=== PATIENT | female | born 1980 | race Caucasian/White ===

== ENCOUNTER 2018-07-14 12:21 | Emergency (ER) | payer SELFPAY ==
--- NOTE | 2018-07-14 13:35 | ER Document Report ---
ED Medical Screen (RME) - General Chief Complaint: Vomiting Stated Complaint: VOMITING/FOOT PAIN Time Seen by Provider: 07/14/18 13:14 Mode of Arrival: Ambulatory TRAVEL OUTSIDE OF THE [place] IN LAST 30 DAYS: No - HPI Notes: 07/14/18 13:31 37-year-old female presents to the ED with complaints of right foot pain after she hit her foot and started on a piece of furniture last night. States pain is 6 out of 10, throbbing achy, has been alternating between Tylenol and ibuprofen. Unable to bear full weight. Denies any numbness or tingling in bilateral lower extremities. Denies any other area of injury. Patient did vomit once today after eating a bagel and orange juice right after, has had no other episodes of vomiting, nausea. denies any abdominal pain. Patient denies history of hypertension, is never had blood pressure issues. Today her blood pressure was slightly elevated, will recheck with manual blood pressure. denies fevers, chills, chest pain,palpitations, shortness of breath, dyspnea, diarrhea, abdominal pain, hematuria,blurred vision, double vision, loss of vision, speech changes, LH, dizziness, syncope, headaches, wheezing, ST, URI, neck pain, weakn ess, bowel or bladder dysfunction, saddle anesthesia, numbness or tingling in bilateral upper or lower extremities equally, muscle paralysis, weakness in bilateral upper or lower extremities equally or rash. I have greeted and performed a rapid initial assessment of this patient. A comprehensive ED assessment and evaluation of the patient, analysis of test results and completion of medical decision making process will be conducted by an additional ED providers. - Related Data Allergies/Adverse Reactions: sulfamethoxazole [From Septra] Allergy (Verified 07/14/18 12:28) rash, nausea trimethoprim [From Janra] Allergy (Verified 07/14/18 12:28) rash, nausea Past Medical History - General Information source: Patient - Social History Chew tobacco use (# tins/day): No Frequency of alcohol use: None Drug Abuse: None - Past Medical History Cardiac Medical History: Reports: Hx Hypertension Renal/ Medical History: Denies: Hx Peritoneal Dialysis Past Surgical History: Reports: Hx Breast Surgery - reduction, Hx Cholecystectomy, Hx Orthopedic Surgery Physical Exam - Vital signs Vitals: Temp Pulse Resp BP Pulse Ox 97.9 F 98 20 198/101 H 99 07/14/18 12:27 07/14/18 12:27 07/14/18 12:27 07/14/18 12:27 07/14/18 12:27 - Respiratory Respiratory status: No respiratory distress Chest status: Nontender Breath sounds: Normal - Cardiovascular Rhythm: Regular Heart sounds: Normal auscultation - Abdominal Distension: No distension - Extremities Foot: Tender - Right great toe at metatarsal joint with tenderness on palpation. no open wounds or drainage. Pedal pulses +2 bilateral lower extremities equally, strength 5 out of 5 bilateral lower extremity equally Course - Vital Signs Vital signs: Temp Pulse Resp BP Pulse Ox 97.9 F 98 20 198/101 H 99 07/14/18 12:27 07/14/18 12:27 07/14/18 12:27 07/14/18 12:27 07/14/18 12:27
--- NOTE | 2018-07-14 14:45 | ER Document Report ---
HPI - HPI Time Seen by Provider: 07/14/18 13:14 Pain Level: 3 Notes: Agree with the triage note aside from the incident occurred 3 days ago (wednesday) not last night and pt has had elevated blood pressure in the past but is not on any medicine for it per mother/pt. Pt states she is here for her foot and otherwise feels well. She is not sexually active and has not been for years. LMP 1mo ago. "37-year-old female presents to the ED with complaints of right foot pain after she hit her foot and started on a piece of furniture last night. States pain is 6 out of 10, throbbing achy, has been alternating between Tylenol and ibuprofen. Unable to bear full weight. Denies any numbness or tingling in bilateral lower extremities. Denies any other area of injury. Patient did vomit once today after eating a bagel and orange juice right after, has had no other episodes of vomiting, nausea. denies any abdominal pain. Patient denies history of hypertension, is never had blood pressure issues. Today her blood pressure was slightly elevated, will recheck with manual blood pressure. denies fevers, chills, chest pain,palpitations, shortness of breath, dyspnea, diarrhea, abdominal pain, hematuria,blurred vision, double vision, loss of vision, speech changes, LH, dizziness, syncope, headaches, wheezing, ST, URI, neck pain, weakness, bowel or bladder dysfunction, saddle anesthesia, numbness or tingling in bilateral upper or lower extremities equally, muscle paralysis, weakness in bilateral upper or lower extremities equally or rash." - ROS Systems Reviewed and Negative: Yes All other systems reviewed and negative - CONSTITUTIONAL Constitutional: DENIES: Fever, Chills - REPRODUCTIVE Reproductive: DENIES: : - MUSCULOSKELETAL Musculoskeletal: REPORTS: Extremity pain - right foot - DERM Skin Color: Normal, [place] Past Medical History - General Information source: Patient - Social History Smoking Status: Former Smoker Chew tobacco use (# tins/day): No Frequency of alcohol use: Occasional Drug Abuse: None Family History: Reviewed & Not Pertinent Patient has suicidal ideation: No Patient has homicidal ideation: No - Past Medical History Cardiac Medical History: Reports: Hx Hypertension Renal/ Medical History: Denies: Hx Peritoneal Dialysis Past Surgical History: Reports: Hx Breast Surgery - reduction, Hx Cholecystectomy, Hx Orthopedic Surgery Vertical Provider Document - CONSTITUTIONAL Agree With Documented VS: Yes Notes: PHYSICAL EXAMINATION: GENERAL: Well-appearing, well-nourished and in no acute distress. LUNGS: Breath sounds clear to auscultation bilaterally and equal. No wheezes rales or rhonchi. HEART: Regular rate and rhythm without murmurs, rubs, gallops. Musculoskeletal: Rt foot/ankle: + mild swelling to the 1st digit with associated tenderness. LROM to passive/active of the 1st toe. FROM otherwise. Strength 5+/5. N/V intact distal. No bony tenderness of the foot/ankle otherwise. Achilles intact. No erythema/warmth. No streaks. No ecchymosis. Extremities: No cyanosis, clubbing, or edema b/l. Peripheral pulses 2+. Capillary refill less than 3 seconds. NEUROLOGICAL: Normal speech, limping gait. Normal sensory, motor exams PSYCH: Normal mood, normal affect. SKIN: see above. - INFECTION CONTROL TRAVEL OUTSIDE OF THE [place] IN LAST 30 DAYS: No Course - Re-evaluation Re-evalutation: 07/14/18 14:59 Patient is an afebrile, well-hydrated, 37-year-old female who presents to the ED with rt toe/foot pain which I suspect to be a sprain/strain vs contusion. Vitals are acceptable without any significant tachycardia, tachypnea, or hypoxia. PE is otherwise unremarkable for any neurovascular compromise, obvious tendon/ligament rupture, obvious fracture/dislocation, septic joint. X-ray was unremarkable for any acute pathology. Pt declined crutches. Patient is nontoxic-appearing. Patient is able to ambulate and weight-bear although she is limping. No other labs or imaging warranted at this time based on H&P. With pt's elevated blood pressure and has reportedly been high previously without meds (and after manual check) I feel comfortable sending the patient home on Lisinopril 20mg daily. She is to monitor her BP at least twice daily and monitor symptoms. Conservative measures otherwise for symptoms. Recheck with your PCM in 3-5 days. Consider consult orthopedics. Return to the ED with any worsening/concerning symptoms otherwise as reviewed in discharge. Patient is in agreement. - Vital Signs Vital signs: Temp Pulse Resp BP Pulse Ox 97.9 F 98 20 170/104 H 99 07/14/18 12:27 07/14/18 12:27 07/14/18 12:27 07/14/18 13:49 07/14/18 12:27 Discharge - Discharge Clinical Impression: Toe pain, right Condition: Stable Disposition: HOME, SELF-CARE Additional Instructions: Rest, Ice, Compression, Elevation Tylenol/ibuprofen as needed Light stretches daily Strength exercises as able Monitor blood pressure at least twice daily* Avoid foods high in sodium. F/u with your PCP in 3-5 days for a recheck Consider consult(s) with Orthopedics/physical therapy for ongoing/worsening symptoms Return to the ED with any worsening symptoms and/or development of fever, headache, chest pain, palpitations, syncope, shortness of breath, trouble breathing, abdominal pain, n/v/d, muscle weakness/paralysis, numbness/tingling, swelling, redness, or other worsening symptoms that are concerning to you. Prescriptions: Lisinopril 20 mg PO DAILY #30 tablet Forms: Elevated Blood Pressure Referrals: [facility] ([place] [Provider Group] - Follow up as needed TOYA SANFORD MD [ACTIVE STAFF] - Follow up as needed
--- NOTE | 2018-07-14 14:47 | RADIOLOGY REPORT (SQ) ---
EXAM DESCRIPTION: FOOT RIGHT COMPLETE COMPLETED DATE/TIME: 07/14/2018 2:34 pm REASON FOR STUDY: hit big toe last night, + pain COMPARISON: None. NUMBER OF VIEWS: Three views. TECHNIQUE: AP, lateral and oblique radiographic images acquired of the right foot. LIMITATIONS: None. FINDINGS: MINERALIZATION: Normal. BONES: No acute fracture or dislocation. No worrisome bone lesions. JOINTS: No effusions. SOFT TISSUES: Moderate soft tissue swelling along the dorsal aspect of the distal foot. OTHER: No other significant finding. IMPRESSION: No acute bony changes. Soft tissue swelling along the dorsal aspect of the distal foot. TECHNICAL DOCUMENTATION: JOB ID: [id number] [email or web address] All Rights Reserved Reading location - IP/workstation name: [email or web address]
[2018-07-14 15:38] VITALS: BP 155/102
== END 2018-07-14 15:38 | disposition home or self-care (01) ==
LOC: ER 12:21
DX: M79.674 Pain in right toe(s) (principal); I10 Essential (primary) hypertension; Z90.49 Acquired absence of other specified parts of digestive tract
CPT/HCPCS: 99283